=== PATIENT | female | born 1990 | race Caucasian/White ===

== ENCOUNTER 2019-03-09 23:27 | Inpatient (IN) | payer OTHER ==
[2019-03-09] MEDS ORDERED: diphenhydrAMINE 25 MG CAP PO PRN (23:47)
[2019-03-09] MEDS ORDERED: LORazepam 0.5 MG TAB PO PRN (23:47)
[2019-03-09] MEDS ORDERED: HYDROCODONE/APAP 5/325 TAB PO PRN (23:47)
[2019-03-09] MEDS ORDERED: ONDANSETRON 4 MG/2 ML VIAL IVP PRN (23:47)
[2019-03-09] MEDS ORDERED: ACETAMINOPHEN 325 MG TAB PO PRN (23:47)
[2019-03-09] MEDS ORDERED: ONDANSETRON DISINTEGRATING 4 MG TAB PO PRN (23:47)
[2019-03-10] MEDS: NS 1,000 ML IV SCH ×2 (00:14→15:02)
--- NOTE | 2019-03-10 02:02 | GHP ---
[f rep st] HISTORY AND PHYSICAL DATE OF ADMISSION: 03/09/2019 SOURCE: Patient provides history, appears reliable. EMR was reviewed and case discussed with ED pro vider before transfer. CHIEF COMPLAINT: Abdominal pain, bloody stools. HISTORY OF PRESENT ILLNESS: This is a very pleasant 28-year-old female with past medical history sig nificant for ulcerative colitis diagnosed in 2013 who has only had one prior hospitalization previous ly who presents to the emergency department with complaints of fever associated with two weeks of wor sening left lower quadrant abdominal pain and bloody stools. Patient reports her symptoms started ap proximately two weeks ago. She is followed by with GI at in [place]. She was previousl y on Remicade and subsequently transitioned to Entyvio. She does receive an infusion every 4 weeks. Her last dose was received on the . The patient has had declined appetite, suspected weight loss with looser fitting clothes. She is trying to tolerate oral hydration with liquids. She has contin ued to have at least ten bloody bowel movements on a daily basis. Patient notes that she has been tr lashonda to work with an alternative health provider over the last two weeks, but her symptoms have wesley nued to decline. Patient also reports that she has noted increased dyspnea on exertion, particularly with going up stairs. She appears more short of breath. She has not had any cough, rhinorrhea, sor e throat. She has not had any lightheadedness or presyncope but does feel quite fatigued. She repor ts a history of anemia requiring transfusion remotely, and this was in 2013. Since that time she has been able to manage on an outpatient basis. Patient reports that she has been on multiple medicatio ns including Remicade, azathioprine, mesalamine without any significant improvement in her symptoms. She reports she was previously on a q.8 infusion schedule for her Entyvio, and this has been decreas ed on to q.4. her symptoms which she is complaining of today have progressively worsened since the d ay following her infusion. Patient presented to [facility] Emergency Department where patient received a dose of Flagyl and Rocephin at approximately 2130. She was recommended to have admission, but after checking with her insurance plan coverage, they were not inpatient approved provider. Hence, the patient requested transfer to [facility]. REVIEW OF SYSTEMS: Ten systems reviewed and negative except as noted above. ALLERGIES: Sulfa, azathioprine, budesonide, and Benadryl induces flare. HOME MEDICATIONS: Entyvio. PAST MEDICAL HISTORY: Significant for ulcerative colitis, anemia of chronic blood loss with requirem ent for transfusion, history of venous sinus thrombosis diagnosed during her initial hospital stay in 2013. PAST SURGICAL HISTORY: Significant for colonoscopy. FAMILY HISTORY: Patient reports she is adopted, does not know. SOCIAL HISTORY: Patient lives with her fiance where she feels safe. She does not smoke, drink, or u tilize any illicit drugs or marijuana products. CODE STATUS: Full. PHYSICAL EXAM: VITAL SIGNS: Patient's initial vital signs upon arrival to [facility]: Pulse 99, respir atory rate 16, blood pressure 123/69, temperature 36.8, O2 saturation 99% on room air. Vital sign at discharge: Pulse 77, respiratory rate 16, blood pressure 101/59, temp 37.4. Her T-max was recorded at 38.4, O2 saturation 95% on room air. Vitals upon arrival to [facility]: Blood pressure 106/55, heart rate 80, respiratory r ate 16, O2 saturation 96% on room air with temperature of 37.6. GENERAL: No acute distress, pleasan t, thin, frail-appearing young adult female who is lying quietly in bed. She does appear quite fatig ued, but she is pleasant and cooperative. HEAD: Normocephalic, atraumatic. EYES: Extraocular musc les grossly intact. Pupils equal, round, react to light bilaterally and symmetric. No scleral icter us or conjunctival injection. ENT: Mucous membranes appear slightly dry. No oropharyngeal erythema or exudates. Dentition intact. NECK: Supple. Trachea midline. CV: Regular rate and rhythm. No murmurs, rubs, or gallops appreciated. RESPIRATORY: Unlabored breathing. Lungs clear to auscultat ion bilaterally. No wheezes, rales, or rhonchi appreciated. ABDOMEN: Minimally distended, soft, in creased tenderness in the left lower quadrant. No rebound or guarding appreciated. Hypoactive bowel sounds. : No suprapubic tenderness to palpation. No Whitehead catheter in place. MUSCULOSKELETAL: Patient with generalized weakness. She is able to sit up independently. Moves all extremities. St rength grossly 4/5 in upper and lower extremities. NEURO: Grossly nonfocal. No facial drooping. M oves all extremities. PSYCH: Patient affect slightly flat. She does appear fatigued, but she is ve ry pleasant and cooperative. Thought process, content, and questions are otherwise appropriate. LABORATORY STUDIES: As reviewed accompanying from [facility]. CBC: WBC is 11.4, H and H are 8.5 and 28 .8, MCV 71, platelet count is 515, neutrophil percent 43, no bands. Sodium 133, potassium 3.3, chlor darrin 102, CO2 of 26, BUN 9, creatinine is 1.00, glucose 114, calcium is 8.0, anion gap of 8, albumin 2 .6, total protein 6.6, total bilirubin 0.1, ALT 20, AST 16, alkaline phosphatase 77, GFR of 76.3, lac tic acid 1.4. UA: Specific gravity of less than 1.005, pH of 5.5, negative. UPT is negative. Chest x-ray report reviewed. No imaging available. Chest x-ray, two views, negative. CT abdomen an d pelvis without showing calcifications in the right upper pole of the kidney, 7 mm at the greatest, and posteriorly multiple small calcifications. There is bilateral fullness of the ovaries. There is no hepatic mass or biliary ductal dilatation. Gallbladder is unremarkable without cholelithiasis or pericholecystic fluid. There is bowel wall thickening involving the rectum and mild increased thick ening in the transverse and sigmoid colon. There is scattered lymph nodes in the mesentery adjacent to the sigmoid colon. No evidence of free air or abscess is present. ASSESSMENT AND PLAN: This is a pleasant 28-year-old female with history of ulcerative colitis who pr esents with complaints of two-week history of bloody stools but new in the last 24 hours of fevers. 1. Ulcerative colitis. Patient reports she has been experiencing a flare for the past two weeks. S he is on Entyvio biologic therapy. Review with the patient regarding additional therapy options reve als that she has been on multiple including failure on mesalamine, azathioprine, steroids. Evert l discussion with her GI team tomorrow, but at this time given her fever, we will plan to continue an tibiotics with Flagyl and Rocephin, which she received prior to arrival here at [facility] from the ED. Patient does appear to be more comfortable. 2. Acute on chronic abdominal pain. PRN medications for pain control. 3. Anemia, chronic blood loss. Patient reports some symptoms with exertion. We will plan to monito r H and H in the morning. She will be typed and screened with morning labs as well. 4. Hypokalemia. Replacement if tolerated. 5. History of venous sinus thrombosis in 2013. Given her current bleeding, she is not a candidate f or anticoagulation which was the case during her last hospital stay for ulcerative colitis flare. Ad vised patient to notify us if she should feel any recurrence of similar symptoms she experienced incl uding headache, changes in vision. 6. Fluid, electrolyte, nutrition: Some gentle intravenous fluid hydration as patient has had declin ing oral intake over the last several weeks with her symptoms. Electrolyte replacement as noted abov e. 7. Prophylaxis: Holding anticoagulation given history of bleeding. Sequential compression devices as tolerated. 8. Cor status: Full. 9. Disposition: Patient admitted to observation status on the medical/surgical floor for continued IV antibiotics at this time and symptom control pending additional discussion with GI. /[id number]/MODL
[2019-03-10 04:40] LABS: PLATELET COUNT 484 10^3/uL (150-400)
[2019-03-10] MEDS: SODIUM FERRIC GLUCONAT/SUCROSE 125 MG in NS 100 ML IV SCH (09:26)
[2019-03-10] MEDS: methylPREDNISolone SOD SUCC 40 MG/ML VIAL IVP SCH ×2 (11:29→19:27)
--- NOTE | 2019-03-10 12:18 | GCON ---
[f rep st] CONSULTATION DATE OF CONSULTATION: 03/10/2019 REFERRING PHYSICIAN: Yvan Enriquez MD CHIEF COMPLAINT: Ulcerative colitis. Dear Dr. Enriquez: Thank you very kindly for asking me to evaluate the patient in consultation for a chief complaint of rectal bleeding, diarrhea and known ulcerative colitis. She is a pleasant 28-year-old female who has had ulcerative colitis since her early 20s. She is currently managed by Cole Rodriguez, nurse practit lilly at the [facility]. She was initially on Remicade, which cont rolled her disease for quite some time, but about a year and a half ago, lost response to this drug w ith recurrence of diarrhea and rectal bleeding. She was ultimately placed on vedolizumab induction a nd on maintenance therapy. In October, she started to develop worsening diarrhea and bleeding. The frequency of her vedolizumab infusions were increased to every 4 weeks and she went on a course of p rednisone, which seemed to help. However, since tapering the prednisone, she is once again sick. Sasha cabrera has been describing flu-like symptoms with malaise, fatigue and worsening diarrhea, tenesmus, lower abdominal cramping and bright-red hematochezia. Her initial white blood count on admission is 13.2 with a hematocrit of 25.5 and an MCV of 71.4. Her platelets are elevated at 484. She was started on ceftriaxone and Flagyl for possible infectious colitis and was admitted for further evaluation and m anagement. I am asked to assist with her care. PAST MEDICAL HISTORY: Ulcerative colitis. She has a history of a deep venous thrombosis. PAST SURGICAL HISTORY: Her last flexible sigmoidoscopy was in October. She does not recall when her last full colonoscopy was. FAMILY HISTORY: Unknown, as she is adopted. SOCIAL HISTORY: No tobacco. No alcohol. No substance abuse. She has a fiance. Her parents are wi th her at bedside. MEDICATIONS: On admission are vedolizumab infusions 300 mg IV q.4 weeks. Current medications are ce ftriaxone, Flagyl. She is receiving an iron infusion, Zofran, Compton 5/325 q.4 hours p.r.n. pain and Tylenol. ALLERGIES: Azathioprine, budesonide and sulfa antibiotics. REVIEW OF SYSTEMS: CONSTITUTIONAL: She has malaise, fatigue, poor appetite, weakness. HEENT: Cyril es headache. No visual disturbances. No sore throat. No rhinorrhea. No ear pain. No neck pain. PULMONARY: No cough or shortness of breath. CARDIOVASCULAR: No chest pain or palpitations. GI: A s per the HPI, and otherwise negative for heartburn or dysphagia. There has been no evidence of naus ea, vomiting, or hematemesis. RHEUMATOLOGIC: She denies any joint pain, swelling, or deformity. DE RMATOLOGIC: Denies pruritus, jaundice, or rash. NEURO: Denies any focal motor weakness, falls, or seizures. HEMATOLOGIC: Denies epistaxis or any bruising. LYMPH: Denies any swollen glands. ENDOC RINE: Denies heat or cold intolerance. She does report fatigue. No polyuria, no polydipsia. GENIT OURINARY: No flank pain. No dysuria. No hematuria. GYNECOLOGIC: No vaginal discharge or bleeding . She denies . PHYSICAL EXAM: VITAL SIGNS: Blood pressure is 99/53, with a pulse of 82, temperature is 36.7. GENE RAL: Thin and pale female in no acute distress, seems tired. HEENT: Normocephalic, atraumatic. NE CK: Supple. No adenopathy. No oral thrush. PULMONARY: Clear to auscultation bilaterally. CARDIO VASCULAR: Regular rate and rhythm without murmur, rub, or gallop. GI: Abdomen is soft and nondiste nded. Diffusely tender with the worst tenderness in the left lower quadrant. No rebound or guarding . Bowel sounds are normoactive. EXTREMITIES: No edema. Joint exam is without deformity, swelling, or warmth. DERMATOLOGIC: Negative for jaundice, rash, or ecchymoses. NEURO: Alert to person, villa ce and time. Motor is nonfocal. DATABASE: Includes the following: Laboratories: White blood count 3.2, hematocrit 25.5, platelets 44. Sodium 137, potassium 4.1, chloride 109, bicarbonate 21, BUN 6, creatinine 0.8. AST is 20, ALT is 33, total protein is 5.1, albumin 2.4, total bilirubin less than 0.1, alkaline phosphatase 67. IMPRESSION: 1. Diarrhea. 2. Hematochezia. 3. Anemia, iron deficiency and likely due to chronic blood loss. 4. Ulcerative colitis. I do not know the extent of her disease in terms of how much colon is involv ed. 5. Long-term use of biologic medications that are immunocompromising. 6. Abdominal pain, predominantly left lower quadrant. RECOMMENDATIONS: 1. IV iron infusion. 2. Stop antibiotics. 3. Send stool PCR and culture. 4. Begin Solu-Medrol 40 mg IV q.6 hours. 5. If she fails to improve, a flexible sigmoidoscopy will be done to assess disease activity and obt ain biopsies to exclude any infectious overlay. 6. If her stool culture and PCR are positive, then treatment for this concomitant overlay of infecti ous colitis in the setting of ulcerative colitis will be needed, but I would rather have the stool st udies before empirically treating with antibiotics, which is why I recommend discontinuing them. 7. Stress ulcer prophylaxis with Zantac 150 mg p.o. b.i.d. in the setting of her illness and steroid use. 8. How to better manage her colitis in the [facility] may be a little challenging. She has already h ad a loss of response to Remicade and now also seems to have had a loss of response vedolizumab. She may benefit from a change of therapy to Xeljanz, which we can discuss with her GI team at [facility] . 9. Further recommendations to follow her clinical course. 10. Repeat a.m. labs, CBC, chemistries and LFTs tomorrow. Thank you very kindly for allowing me to be involved in the care with the patient. I have discussed this with Dr. Vick Enriquez and I have spent time reviewing the treatment plan with both her fiance and her parents. The patient and her family are comfortable with the current care plan. /[id number]/MODL
--- NOTE | 2019-03-10 13:47 | ASMTCASEMG ---
Living Arrangements What is your living Answers: With Other (Not Family) arrangement? Who do you live with? Discharge Plan Comments Coordination Status Comments Notes: Pt admitted through ED last night with flare-up of ulcerative colitis. CM met with pt in her room today. Pt lives at home with friend Tu Reyes [phone] in [place]. She is an independent young woman who anticipates no needs once she returns home. No therapies have been ordered. CM will be available should needs arise. CM D/C plan: Independent to home Date Signed: 03/10/2019 01:45 PM Electronically Signed By:Chasity Kinsey
--- NOTE | 2019-03-10 18:50 | HOSPPROG ---
Hospitalist Progress Note Assessment/Plan: DIAGNOSES: * Ulcerative colitis exacerbation despite ongoing biologic therapy * Severe iron deficiency anemia due to above * Abdominal cramping PLANS: * I have consulted Dr. Tyrese Mar and he has seen the patient and reviewed treatment plans with him in detail * Steroids started today * No current indication for antibiotics and have stopped these * I ordered iron replacement therapy for her iron deficiency and anemia * She has iron deficiency and anemia that her severe in symptomatic and actually meets criteria to consider transfusion of red blood cells. I reviewed options with her. At this point I prefer to try and avoid transfusion if we can however she becomes more symptomatic, more anemic, or does not have any resolution of symptom we may need to go ahead and transfuse her. She is in agreement with current plan Seen by me today on hospitalist rounds as well as multidisciplinary rounds Greater than 40 min spent by me at the bedside with the patient on 2 visits today in addition to the time spent earlier by Dr. Murray on her rounds Patient has ongoing need for IV medication including high-dose steroids as well as IV iron and possible transfusion, will need to stay here in hospital will change to inpatient at present SUBJECTIVE: Still with crampy pain and bloody stools unchanged from prior to admission Is not feeling short of breath while lying in bed but still short of breath with any exertion No definite fever symptoms OBJECTIVE Vitals reviewed: Some low blood pressures, hard to tell if these are her baseline blood pressure as she does not really remember her usual numbers at this time Exam: Alert oriented Appears tired and uncomfortable skin warm dry color pale resps not labored at rest lungs clear BSs heart regular abd soft nondistended mildly tender but no rebound or mass, bowel sounds present limbs warm, no edema iv site ok Laboratory data: On my review of her labs from the ER she has severe microcytic anemia strongly suggestive of not only the anemia but severe iron deficiency Objective: Vital Signs Temp Pulse Resp BP Pulse Ox 37.2 C 86 16 82/51 L 93 03/10/19 15:42 03/10/19 15:42 03/10/19 15:42 03/10/19 15:42 03/10/19 15:42 Microbiology 03/10/19 14:10 Gastrointestinal Tract Panel (PCR) - Final Stool No Organism Detected By Pcr Laboratory Results 03/10/19 04:00 03/10/19 04:00 03/09/19 03/10/1919 06:59 06:59 06:59 Intake Total 260 Output Total 250 450 Balance 10 -450 ICD10 Worksheet Patient Problems: Problems Problem Status Onset Colitis Acute - ICD10 Problem Qualifiers (1) Colitis
[2019-03-10] MEDS: RANITIDINE HCL 150 MG/10 ML UDCUP PO SCH (21:01)
[2019-03-11] MEDS: methylPREDNISolone SOD SUCC 40 MG/ML VIAL IVP SCH ×4 (00:34→18:38)
[2019-03-11] MEDS: NS 1,000 ML IV SCH ×2 (04:19→21:12)
--- NOTE | 2019-03-11 06:52 | PDMN ---
Medical Necessity Medical necessity: Change to inpt as of 03/10/19, donovan inpt criteria per MD order and [facility] M-565, Inflammatory Bowel Disease, A-2 days, inpt adm indicated for: acute severe ulcerative colitis as indicated by: 6 or more bloody bowel movements per day and systemic illness as indicated by: Hemoglobin<10, severe iron deficiency anemia, may require transfusion, ongoing need for IV meds including IVF, high dose steroids, and IV iron, pt continues to have abd cramping in addition to blood stools and SOB w/exertion. 28 y/o w/hx ulcerative colitis presented w/2 week hx of bloody stools, fevers, and abd pain , admitted w/ulcerative colitis exacerbation despite ongoing biologic therapy, upgraded to npt for ongoing med nec managementof above, est LOS>2MN.
--- NOTE | 2019-03-11 09:07 | SOAPPROG ---
SOAP Progress Note Assessment/Plan: Assessment: 1. Diarrhea 2. Hematochezia 3. Tenesmus 4. LLQ pain 5. UC Plan: 1. Continue IV steroids as monotherapy 2. Plan to bridge to PO steroids once improved 3. ADAT 4. Continue vedolizumab 300mg IV q4wks as outpatient for now. May need to consider switching to alternate biologic Rx or adding therapy pending her ability to suppress this flair and successfully taper steroids over time. 5. AM labs 03/11/19 09:04 Subjective: CC: Diarrhea Improved overnight. Less diarrhea. Less bleeding. Ongoing tenesmus but pain improved. eating today. Objective: Vital Signs Temp Pulse Resp BP Pulse Ox 36.6 C 63 16 97/57 L 95 03/11/19 08:32 03/11/19 08:32 03/11/19 08:32 03/11/19 08:32 03/11/19 08:32 Microbiology 03/10/19 14:10 Gastrointestinal Tract Panel (PCR) - Final Stool No Organism Detected By Pcr Laboratory Results 03/10/19 04:00 03/10/19 04:00 03/10/19 03/11/19 03/12/19 05:59 05:59 05:59 Intake Total 260 2082 Output Total 250 450 Balance 10 1632 Physical Exam - Physical Exam General Appearance: no apparent distress, thin EENT: pharynx normal Neck: supple Respiratory: lungs clear, No rales Cardiac/Chest: regular rate, rhythm Abdomen: normal bowel sounds, soft, other (Mild TTP LLQ), No distended, No guarding, No rebound ICD10 Worksheet Patient Problems: Problems Problem Status Onset Colitis Acute
[2019-03-11] MEDS: SODIUM FERRIC GLUCONAT/SUCROSE 125 MG in NS 100 ML IV SCH (10:08)
[2019-03-11] MEDS: CHOLECALCIFEROL VIT D3 1,000 UNITS TAB PO SCH (10:09)
[2019-03-11] MEDS: RANITIDINE HCL 150 MG/10 ML UDCUP PO SCH (10:09)
[2019-03-11] MEDS: VSL#3 1 EACH CAP PO SCH (10:09)
--- NOTE | 2019-03-11 10:22 | HOSPPROG ---
Hospitalist Progress Note Assessment/Plan: DIAGNOSES: * Ulcerative colitis exacerbation despite ongoing biologic therapy * Severe iron deficiency anemia due to above * Abdominal cramping PLANS: * continue solumedrom iv * recheck Hg in am * No current indication for antibiotics and have stopped these * continue daily IV iron * if Hg lower can consider possibility of transfusion - if symptoms of dyspnea/ fatigue better or not worse would try to treat without transfusion Seen by me today on hospitalist rounds as well as multidisciplinary rounds Reviewed w Dr Mar today SUBJECTIVE: still with cramps, diarrhea, urgency, bleeding, but all are starting to decrease a bit got some sleep after 3 am no fever, no other new symptoms OBJECTIVE Vitals reviewed: vitals stable over all no fever Exam: Alert oriented a bit more relaxed today skin warm dry color pale resps not labored at rest lungs clear BSs heart regular abd soft nondistended mildly tender but no rebound or mass, bowel sounds present limbs warm, no edema iv site ok Objective: Vital Signs Temp Pulse Resp BP Pulse Ox 36.6 C 63 16 97/57 L 95 03/11/19 08:32 03/11/19 08:32 03/11/19 08:32 03/11/19 08:32 03/11/19 08:32 Microbiology 03/10/19 14:10 Gastrointestinal Tract Panel (PCR) - Final Stool No Organism Detected By Pcr Laboratory Results 03/10/19 04:00 03/10/19 04:00 03/10/19 03/11/19 03/12/19 06:59 06:59 06:59 Intake Total 260 2082 500 Output Total 250 450 3 Balance 10 1632 497 ICD10 Worksheet Patient Problems: Problems Problem Status Onset Colitis Acute - ICD10 Problem Qualifiers (1) Colitis
[2019-03-11] MEDS: FAMOTIDINE 20 MG TAB PO SCH (20:39)
[2019-03-12] MEDS: methylPREDNISolone SOD SUCC 40 MG/ML VIAL IVP SCH ×4 (00:15→18:26)
[2019-03-12] MEDS: SODIUM FERRIC GLUCONAT/SUCROSE 125 MG in NS 100 ML IV SCH (09:24)
[2019-03-12] MEDS: VSL#3 1 EACH CAP PO SCH (09:24)
[2019-03-12] MEDS: FAMOTIDINE 20 MG TAB PO SCH ×2 (09:24→21:25)
[2019-03-12] MEDS: CHOLECALCIFEROL VIT D3 1,000 UNITS TAB PO SCH (09:24)
--- NOTE | 2019-03-12 11:48 | ASMTCMCOM ---
CM Note CM Note Notes: CM met with pt in room and discussed in interdisciplinary rounds. Her hematocrit and hemoglobin are still low but improving. Her last bag of IV iron was hung today. She will continue on IV solumedrol. No CM needs identified but CM will be available should needs change. CM D/C plan: Independent to home Date Signed: 03/12/2019 11:47 AM Electronically Signed By:Chasity Kinsey
[2019-03-12] MEDS: NS 1,000 ML IV SCH (12:49)
--- NOTE | 2019-03-12 13:14 | SOAPPROG ---
SOAP Progress Note Assessment/Plan: Assessment: 1. Diarrhea 2. Hematochezia 3. Tenesmus 4. LLQ pain 5. UC Plan: 1. Continue IV steroids as monotherapy 2. Plan to bridge to PO steroids tomorrow 3. ADAT 4. Continue vedolizumab 300mg IV q4wks as outpatient for now. May need to consider switching to alternate biologic Rx or adding therapy pending her ability to suppress this flair and successfully taper steroids over time. 5. Hopefully home soon. 03/12/19 13:12 Subjective: CC: less hematochezia Minimal LLQ pain but still worse with BM Less stool frequency and more stool form. Objective: Vital Signs Temp Pulse Resp BP Pulse Ox 36.7 C 55 L 16 91/56 L 95 03/12/19 07:18 03/12/19 07:18 03/12/19 07:18 03/12/19 07:18 03/12/19 07:18 Laboratory Results 03/12/19 03:54 03/12/19 03:54 03/11/19 03/12/19 03/13/19 05:59 05:59 05:59 Intake Total 2082 2150 Output Total 450 3 Balance 1632 2147 Physical Exam - Physical Exam General Appearance: no apparent distress, thin Respiratory: lungs clear Cardiac/Chest: regular rate, rhythm Abdomen: soft, No distended, No guarding, No rebound Skin: pallor ICD10 Worksheet Patient Problems: Problems Problem Status Onset Colitis Acute
--- NOTE | 2019-03-12 13:54 | HOSPPROG ---
Hospitalist Progress Note Assessment/Plan: 28 year old female with UC admitted with UC flare. DIAGNOSES: * Ulcerative colitis exacerbation despite ongoing biologic therapy * Severe iron deficiency anemia due to above * Abdominal cramping * Protein calorie malnutrition PLANS: * continue solumedrol iv * recheck Hg in am * No current indication for antibiotics and have stopped these * continue daily IV iron, dose given today. * if Hg lower can consider possibility of transfusion - if symptoms of dyspnea/ fatigue better or not worse would try to treat without transfusion * Case discussed with GI, plan to transition to oral prednisone as she improves. Fluids- tolerating po Lytes- WNl Nutrition- advanced to regular Cor- Full dispo- remain inpatient for UC flare, anemia, pain patient is new to me, reviewed her chart and records showing a hx of ulcerative colitis with exacerbation that has persisted despite biologics. Subjective: still some cramping, mildly improved. Objective: Vital Signs Temp Pulse Resp BP Pulse Ox 36.7 C 55 L 16 91/56 L 95 03/12/19 07:18 03/12/19 07:18 03/12/19 07:18 03/12/19 07:18 03/12/19 07:18 Laboratory Results 03/12/19 03:54 03/12/19 03:54 03/11/19 03/12/19 03/13/19 05:59 05:59 05:59 Intake Total 2082 2150 Output Total 450 3 Balance 1632 2147 - Physical Exam Constitutional: no apparent distress, appears nourished, not in pain Eyes: PERRL, anicteric sclera, EOMI Ears, Nose, Mouth, Throat: moist mucous membranes, hearing normal, ears appear normal, no oral mucosal ulcers Cardiovascular: regular rate and rhythym, no murmur, rub, or gallop Respiratory: no respiratory distress, no rales or rhonchi, clear to auscultation Gastrointestinal: normoactive bowel sounds, soft, non-tender abdomen, no palpable masses Genitourinary: no bladder fullness, no bladder tenderness, no renal bruits Skin: no rashes or abrasions, no fluctuance, no induration Musculoskeletal: full muscle strength, no muscle tenderness, normal joint ROM Neurologic: AAOx3, sensation intact bilaterally Psychiatric: interacting appropriately, not anxious, not encephalopathic, thought process linear Lymph, Heme, Immunologic: no cervical LAD, no supraclavicular LAD ICD10 Worksheet Patient Problems: Problems Problem Status Onset Colitis Acute
[2019-03-12] MEDS: MELATONIN 3 MG TAB PO PRN (21:53)
[2019-03-13] MEDS: methylPREDNISolone SOD SUCC 40 MG/ML VIAL IVP SCH ×3 (00:02→12:44)
[2019-03-13] MEDS: NS 1,000 ML IV SCH (00:02)
[2019-03-13 04:36] LABS: PLATELET COUNT 551 10^3/uL (150-400)
[2019-03-13] MEDS: VSL#3 1 EACH CAP PO SCH (08:46)
[2019-03-13] MEDS: FAMOTIDINE 20 MG TAB PO SCH ×2 (08:46→21:38)
[2019-03-13] MEDS: CHOLECALCIFEROL VIT D3 1,000 UNITS TAB PO SCH (08:46)
--- NOTE | 2019-03-13 13:05 | HOSPPROG ---
Hospitalist Progress Note Assessment/Plan: 28 year old female with UC admitted with UC flare. DIAGNOSES: * Ulcerative colitis exacerbation despite ongoing therapy * Severe iron deficiency anemia due to above * Abdominal cramping * Protein calorie malnutrition PLANS: * I discussed her case with GI, plan to transition to oral prednisone today. Plan to start Simponi. If patient worsens on prednisone 40, increase to 60mg QD. * recheck Hg * No current indication for antibiotics and have stopped these * if Hg lower can consider possibility of transfusion - if symptoms of dyspnea/ fatigue better or not worse would try to treat without transfusion * stop IV fluids, she is taking adequate po. * start oral iron. Fluids- tolerating po Lytes- WNl Nutrition- advanced to regular Cor- Full dispo- remain inpatient for UC flare, anemia, pain Subjective: doing better. tolerating PO, less cramping. Objective: Vital Signs Temp Pulse Resp BP Pulse Ox 36.9 C 60 14 95/57 L 95 03/13/19 07:56 03/13/19 08:51 03/13/19 07:56 03/13/19 07:56 03/13/19 07:56 Laboratory Results 03/13/19 03:58 03/13/19 03:58 03/12/19 03/13/19 03/14/19 05:59 05:59 05:59 Intake Total 2149 2024 400 Output Total 3 Balance 2146 2024 400 - Physical Exam Constitutional: no apparent distress, appears nourished, not in pain Eyes: PERRL, anicteric sclera, EOMI Ears, Nose, Mouth, Throat: moist mucous membranes, hearing normal, ears appear normal, no oral mucosal ulcers Cardiovascular: regular rate and rhythym, no murmur, rub, or gallop Respiratory: no respiratory distress, no rales or rhonchi, clear to auscultation Gastrointestinal: normoactive bowel sounds, soft, non-tender abdomen, no palpable masses Genitourinary: no bladder fullness, no bladder tenderness, no renal bruits Skin: no rashes or abrasions, no fluctuance, no induration Musculoskeletal: full muscle strength, no muscle tenderness, normal joint ROM Neurologic: AAOx3, sensation intact bilaterally Psychiatric: interacting appropriately, not anxious, not encephalopathic, thought process linear Lymph, Heme, Immunologic: no cervical LAD, no supraclavicular LAD ICD10 Worksheet Patient Problems: Problems Problem Status Onset Colitis Acute
--- NOTE | 2019-03-13 13:16 | SOAPPROG ---
SOAP Progress Note Assessment/Plan: Assessment:Plan: 1) UC flare - trial of PO prednisone - start at 40mg and if not effective go to 60mg per day in two divided doses. Will need to change biologic - prob to TNF agent - I did speak to her SCHEDULE PLANNING MANAGER [place] [facility] [facility] - they prefer Simponi over Humira. Would also rec immunomodulator to treat dz and decrease ab formation. Would prob avoid Xeljanz given her hx of clot 2) Anemia - stable HB, oral iron and MVI 3) diarrhea - as per number 1 4) LLQ pain - secondary to number 1 of note her fecal calprotectin did decrease with increasing Entyvio to q 4 weeks , but was still sig elevated (approx 1200 to 600) Subjective: cc- UC flare with diarrhea, LLQ pain and tenesmus no sig change in amount of stool or frequency, pain stable family in room' long discussion about different meds and need to change biologics given loss of response I also spoke to her [facility] [place]LE PLANNING MANAGER by phone Objective: Vital Signs Temp Pulse Resp BP Pulse Ox 36.9 C 60 14 95/57 L 95 03/13/19 07:56 03/13/19 08:51 03/13/19 07:56 03/13/19 07:56 03/13/19 07:56 Laboratory Results 03/13/19 03:58 03/13/19 03:58 03/12/19 03/13/19 03/14/19 05:59 05:59 05:59 Intake Total 2149 2024 400 Output Total 3 Balance 2146 2024 400 A+Ox3 CTA S1S2 +BS soft mild LLQ tenderness no r/g ICD10 Worksheet Patient Problems: Problems Problem Status Onset Colitis Acute
[2019-03-13] MEDS: predniSONE 20 MG TAB PO SCH ×2 (14:09→18:14)
--- NOTE | 2019-03-13 14:11 | ASMTCMCOM ---
CM Note CM Note Notes: CM met with pt, per RN request that GI doctor requested information on insurance coverage of medications. Pt reports she tried her pharmacy and the pharmacist here also tried the number on her insurance card. Pharmacy spoke with GI who reports they will follow-up with pt tomorrow and discuss medication options. CM availabe if needs arise. Plan is for pt to be discharged independently with follow-up with providers at . Date Signed: 03/13/2019 02:09 PM Electronically Signed By:LUIS Colon
[2019-03-13] MEDS: MELATONIN 3 MG TAB PO PRN (21:38)
[2019-03-14] MEDS: VSL#3 1 EACH CAP PO SCH (09:43)
[2019-03-14] MEDS: CHOLECALCIFEROL VIT D3 1,000 UNITS TAB PO SCH (09:43)
[2019-03-14] MEDS: FAMOTIDINE 20 MG TAB PO SCH (09:43)
[2019-03-14] MEDS: predniSONE 20 MG TAB PO SCH (09:43)
--- NOTE | 2019-03-14 11:37 | HOSPPROG ---
Hospitalist Progress Note Assessment/Plan: 28 year old female with UC admitted with UC flare and anemia DIAGNOSES: * Ulcerative colitis exacerbation despite ongoing therapy * Severe iron deficiency anemia due to above * Abdominal pain * Protein calorie malnutrition PLANS: * Discussed with GI, on prednisone 20 BID.Plan to start Simponi after discharge. If patient worsens on prednisone 40, increase to 60mg QD. * recheck Hg in am * No current indication for antibiotics and have stopped these * if Hg lower can consider possibility of transfusion - if symptoms of dyspnea/ fatigue better or not worse would try to treat without transfusion * cont oral iron. * Possible Dc in am if still doing well on oral steroids. Fluids- tolerating po Lytes- WNl Nutrition- advanced to regular Cor- Full dispo- remain inpatient for UC flare, anemia, pain Subjective: seems to be okay. no acute change in pain. tolerating po Objective: Vital Signs Temp Pulse Resp BP Pulse Ox 36.8 C 44 L 16 105/61 98 03/14/19 08:29 03/14/19 08:29 03/14/19 08:29 03/14/19 08:29 03/14/19 08:29 Laboratory Results 03/13/19 03:58 03/13/19 03:58 03/13/19 03/14/19 03/15/19 05:59 05:59 05:59 Intake Total 2024 700 500 Balance 2024 700 500 - Physical Exam Constitutional: no apparent distress, appears nourished, not in pain Eyes: PERRL, anicteric sclera, EOMI Ears, Nose, Mouth, Throat: moist mucous membranes, hearing normal, ears appear normal, no oral mucosal ulcers Cardiovascular: regular rate and rhythym, no murmur, rub, or gallop Respiratory: no respiratory distress, no rales or rhonchi, clear to auscultation Gastrointestinal: normoactive bowel sounds, soft, non-tender abdomen, no palpable masses Genitourinary: no bladder fullness, no bladder tenderness, no renal bruits Skin: no rashes or abrasions, no fluctuance, no induration Musculoskeletal: full muscle strength, no muscle tenderness, normal joint ROM Neurologic: AAOx3, sensation intact bilaterally Psychiatric: interacting appropriately, not anxious, not encephalopathic, thought process linear Lymph, Heme, Immunologic: no cervical LAD, no supraclavicular LAD ICD10 Worksheet Patient Problems: Problems Problem Status Onset Colitis Acute
--- NOTE | 2019-03-14 12:07 | SOAPPROG ---
YISSEL Progress Note Assessment/Plan: Assessment:Plan: 1) UC flare - trial of PO prednisone - start at 40mg and if not effective go to 60mg per day in two divided doses. Will need to change biologic - prob to TNF agent - I did speak to her SPEEDER FRAME TENDER at [facility] [place] [facility] - they prefer Simponi over Humira. Would also rec immunomodulator to treat dz and decrease ab formation. Would prob avoid Xeljanz given her hx of clot 2) Anemia - stable HB, oral iron and MVI 3) diarrhea - as per number 1 4) LLQ pain - secondary to number 1 of note her fecal calprotectin did decrease with increasing Entyvio to q 4 weeks , but was still sig elevated (approx 1200 to 600) 03/14/19 12:04 as above 1) UC fare - ok on PO prednisone at 40mg, will need to change biologics - prob Humira maybe Simponi. Question of reaction to azathioprine? mesalamine? maybe hx pancreatitis - will confirm with [facility] [place] SPEEDER FRAME TENDER Michael tomorrow 2) anemia - mvi and iron 3) diarrhea - no increase with changing to PO prednisone 4) dispo - prob home today Subjective: CC- UC flare doing ok with PO Prednisone wants to go home deciding about which biologic she will change to no f/c/s pain about the same Objective: Vital Signs Temp Pulse Resp BP Pulse Ox 36.8 C 44 L 16 105/61 98 03/14/19 08:29 03/14/19 08:29 03/14/19 08:29 03/14/19 08:29 03/14/19 08:29 Laboratory Results 03/13/19 03:58 03/13/19 03:58 03/13/19 03/14/19 03/15/19 05:59 05:59 05:59 Intake Total 2024 700 500 Balance 2024 700 500 A+Ox3 CTA S1S2 +BS soft still with llq tenderness no r/g ICD10 Worksheet Patient Problems: Problems Problem Status Onset Colitis Acute
--- NOTE | 2019-03-14 13:39 | ASMTCMCOM ---
CM Note CM Note Notes: CM met with Pt in her room to discuss discharge. Pt will follow up with her Doctor at [facility]. Pt will likely discharge today, but CM available if needs arise. PLAN: Discharge home Independently Date Signed: 03/14/2019 01:38 PM Electronically Signed By:Martha Aviles
--- NOTE | 2019-03-14 13:42 | ASMTLACE ---
BIA Comorbidities - select Answers: Other Notes: Ulcerative colitis all that apply # of Emergency department Answers: 0 visits in the last 6 months Score: 1 Date Signed: 03/14/2019 01:41 PM Electronically Signed By:Martha Aviles
--- NOTE | 2019-03-14 13:54 | PDDCSUM ---
Discharge Summary Discharge Summary: Discharge diagnosis Ulcerative colitis flare Abdominal pain Protein calorie malnutrition Hypokalemia History of DVT Anemia Patient is a 28-year-old female with past medical history of ulcerative colitis who was admitted with ulcerative colitis flare. She was started on antibiotics prior to arrival in these were continued briefly but ultimately discontinued as it was not thought that she was suffering from an infection. She was started on IV steroids and Gastroenterology was consulted. She responded to fairly high -dose Solu-Medrol which after a few days was transitioned over to a prednisone 40 mg daily. She was given IV iron for her anemia and her hemoglobin did respond mildly. Gastroenterology here was able to contact her outpatient electrical tech to discuss transition to different therapy. The patient was Entyvio but did not seem to be responding. Her GI doctor recommended transition to Simponi and this was discussed with the patient. Plan was to send her out on 40 mg of prednisone daily which would be titrated down and in the outpatient setting she could be started on Simponi at the discretion of her outpatient electrical tech. On the day of discharge she was able to eat and drink and maintain hydration with no problems and had minimal abdominal pain and wished to be discharged home. She was discharged home to follow up with her outpatient electrical tech as well as her primary care physician for further evaluation management of her ulcerative colitis. Disposition Home independent New medications Prednisone 40 mg daily I spent over 30 min on the discharge of this patient
[2019-03-14 14:47] VITALS: BP 100/52
== END 2019-03-14 15:16 | disposition home or self-care (01) | DRG 386 ==
LOC: F1N 23:27 → OBSVTOIN 03-10 18:49
PROVIDERS: ADMIT Family Medicine; ATTEND Internal Medicine
DX: K51.90 Ulcerative colitis, unspecified, without complications (principal); D50.0 Iron deficiency anemia secondary to blood loss (chronic); E46 Unspecified protein-calorie malnutrition; E87.6 Hypokalemia; Z86.718 Personal history of other venous thrombosis and embolism
CPT/HCPCS: J0696; J2405; J2916; J2920; J7512